=== PATIENT | female | born 1955 | race Caucasian/White ===

== ENCOUNTER 2020-11-10 13:36 | Inpatient (IN) ==
[2020-11-10 15:17] LABS: INR 1.4 (0.9-1.1); Prothrombin Time 17.9 sec (11.9-14.5)
[2020-11-10 15:25] LABS: Basophils # (Auto) 0.02 K/mcL (0.00-0.30); Basophils % (Auto) 0.2 % (0.0-2.0); Eosinophils # (Auto) 0.02 K/mcL (0.00-0.70); Eosinophils % (Auto) 0.2 % (0.0-7.0); Hematocrit 36.6 % (34.1-44.9); Hemoglobin 10.1 g/dL (11.2-15.7); Lymphocytes # (Auto) 1.69 K/mcL (1.50-4.80); Lymphocytes % (Auto) 16.6 % (15.5-49.0); Mean Cell Volume 85.5 fL (80.0-100.0); Mean Corpuscular HGB Conc 27.6 g/dL (31.0-36.0); Monocytes # (Auto) 0.75 K/mcL (0.10-0.90); Monocytes % (Auto) 7.4 % (1.0-12.0); Neutrophils % (Auto) 75.6 % (38.0-78.0); Platelet Count 236 K/mcL (140-440); RBC 4.28 M/mcL (3.59-5.38); Red Cell Distribution Width 18.1 % (11.5-14.5); WBC 10.2 K/mcL (4.5-11.0)
[2020-11-10 15:43] LABS: ALT/SGPT 6 U/L (<40); AST/SGOT 12 U/L (<32); Albumin 3.3 gm/dL (3.2-5.2); Albumin/Globulin Ratio 0.9 (1.0-2.3); Alkaline Phosphatase 119 U/L (39-117); Bilirubin,Total 0.3 mg/dL (0.1-1.0); Blood Urea Nitrogen 19 mg/dL (8-23); Calcium 8.9 mg/dL (8.6-10.4); Carbon Dioxide 42 mmol/L (22-30); Chloride 93 mmol/L (96-108); Globulin 3.6 gm/dL (2.2-3.7); Glomerular Filtration Rate 48; Glucose 98 mg/dL (70-105)
--- NOTE | 2020-11-10 16:09 | Emergency Department Note ---
SOB HPI General Chief Complaint: Shortness of Breath/Dyspnea Stated Complaint: SOB/chest pain Time Seen by Provider: 11/10/20 15:54 Source: patient and EMS Mode of arrival: EMS Limitations: no limitations History of Present Illness HPI Narrative: Patient is a 65-year-old lady who arrives emergency department by ambulance complaining of shortness of breath. History is provided by the patient and paramedics and is limited due to the patient's current medical condition. The patient has been getting short of breath today. Staff at her alf noticed that she appeared more short of breath than usual so he called 911 and she was transferred to the emergency department. Paramedics found her to have an oxygen saturation in the 80s on her usual 2 L home oxygen. This did not improve with increasing oxygen administration. She denies any fever or chills. She is unable to provide a consistent answer as to whether or not she is having associated chest pain. Related Data Home Medications Medication Instructions Recorded Confirmed acetaminophen 650 mg PO Q6H PRN 11/11/20 11/11/20 albuterol sulfate [Proventil HFA] 1 puff INHALATION QID 11/11/20 11/11/20 atorvastatin 40 mg PO QHS 11/11/20 11/11/20 bisacodyl [Dulcolax (bisacodyl)] 10 mg RI QDAY PRN 11/11/20 11/11/20 calcium carbonate 500 mg PO TID PRN 11/11/20 11/11/20 calcium citrate 500 mg PO BID 11/11/20 11/11/20 cholecalciferol (vitamin D3) 25 mcg PO QDAY 11/11/20 11/11/20 docusate sodium 100 mg PO BID 11/11/20 11/11/20 ergocalciferol (vitamin D2) 1,250 mcg PO WE 11/11/20 11/11/20 fluticasone propion-salmeterol 1 inh INHALATION BID 11/11/20 11/11/20 hydroxyzine HCl 50 mg PO DAILY PRN 11/11/20 11/11/20 lidocaine [Lidocaine Pain Relief] 1 patch TOPICAL QDAY PRN 11/11/20 11/11/20 loperamide 2 mg PO Q4H PRN 11/11/20 11/11/20 magnesium 200 mg PO QDAY 11/11/20 11/11/20 magnesium hydroxide [Milk of 400 mg PO QDAY PRN 11/11/20 11/11/20 Magnesia] magnesium oxide 400 mg PO QDAY 11/11/20 11/11/20 melatonin 10 mg PO HS 11/11/20 11/11/20 metformin [Glucophage XR] 500 mg PO QDAY 11/11/20 11/11/20 metoprolol tartrate 50 mg PO BID 11/11/20 11/11/20 multivitamin [Multiple Vitamins] 1 tab PO QAM 11/11/20 11/11/20 naproxen sodium [Aleve] 220 mg PO Q12H PRN 11/11/20 11/11/20 oxycodone 10 mg PO Q4H PRN 11/11/20 11/11/20 paroxetine HCl 10 mg PO QDAY 11/11/20 11/11/20 paroxetine HCl 20 mg PO HS 11/11/20 11/11/20 polyethylene glycol 3350 17 g PO DAILY 11/11/20 11/11/20 potassium chloride 10 meq PO QDAY 11/11/20 11/11/20 pregabalin [Lyrica] 25 mg PO TID 11/11/20 11/11/20 rivaroxaban 20 mg PO 1500 11/11/20 11/11/20 sodium phosphates [Fleet Enema] 118 ml RI ONCE PRN 11/11/20 11/11/20 torsemide [Demadex] 20 mg PO 0700,1500 11/11/20 11/11/20 trazodone 200 mg PO QHS 11/11/20 11/11/20 Allergies Allergy/AdvReac Type Severity Reaction Status Date / Time morphine Allergy Unknown Unknown Verified 11/10/20 13:58 Penicillins Allergy Unknown Unknown Verified 11/10/20 13:58 Review of Systems ROS ROS Narrative: Narrative: Limitations: ROS unobtainable due to patients medical condition [facility] Narrative Patient History Narrative: Narrative: Medical/Surgical/Family History All Active Problems (Updated 11/10/20 @ 19:15 by Abilio Mcdonald MD) Delirium (Acute) On home oxygen therapy (Acute) Acute exacerbation of CHF (congestive heart failure) (Acute) CHF (congestive heart failure) (Acute) No pertinent past surgical history (Chronic) GERD without esophagitis (Chronic) Paroxysmal atrial fibrillation (Chronic) Essential hypertension (Chronic) Major depressive disorder, recurrent, unspecified (Chronic) Mixed hyperlipidemia (Chronic) Pain in left shoulder (Chronic) Chronic combined systolic and diastolic congestive heart failure (Chronic) Right sided sciatica (Chronic) Somatization disorder (Chronic) Insomnia, unspecified (Chronic) Chronic pulmonary embolism (Chronic) Morbid obesity with alveolar hypoventilation (Chronic) Type 2 diabetes mellitus with hyperglycemia (Chronic) Acute and chronic respiratory failure with hypercapnia (Chronic) Acute and chronic respiratory failure with hypoxia (Chronic) COPD (chronic obstructive pulmonary disease) (Chronic) Acute exacerbation of chronic obstructive pulmonary disease (COPD) (Chronic) Hypoventilation (Chronic) Medical History Acute and chronic respiratory failure with hypercapnia Acute and chronic respiratory failure with hypoxia Acute exacerbation of chronic obstructive pulmonary disease (COPD) Chronic combined systolic and diastolic congestive heart failure Chronic pulmonary embolism COPD (chronic obstructive pulmonary disease) Essential hypertension GERD without esophagitis Hypoventilation Insomnia, unspecified Major depressive disorder, recurrent, unspecified Mixed hyperlipidemia Morbid obesity with alveolar hypoventilation Pain in left shoulder Paroxysmal atrial fibrillation Right sided sciatica Somatization disorder Type 2 diabetes mellitus with hyperglycemia Surgical History No pertinent past surgical history Family History Other No pertinent family history Social History Smoking Status: Never smoker Alcohol Intake Frequency: does not drink Exam Narrative Narrative: I reviewed the vital signs. Gen -patient is drowsy but arousable to verbal stimuli and [in no acute distress]. [The patient is well groomed.] HEENT -[Head is atraumatic.] [There is no conjunctival pallor or scleral icterus.][Mucous membranes are moist.] CV -S1-S2 [regular rate and rhythm]. Peripheral pulses are [palpable]. [There is no JVD.] Resp -breathing is slightly labored with tachypnea and intermittent pursed lip breathing. The patient is able to speak in short sentences but has visibly increased work of breathing after prolonged conversation. Lungs have diminished air entry bilaterally.[ There is no cyanosis.] GI - Abdomen is [soft] and [nontender to palpation]. There is [no guarding or rebound tenderness]. Derm - [Skin is warm and dry.] [There is no visible rash.] MSK -[Present extremities are atraumatic.] Psych -patient has a flat affect. [The patient does not appear internally stimulated.] Neuro -patient provides simple and somewhat inconsistent answers to questions but is technically oriented to person place time and situation. She has difficulty comprehending more complex directions limiting the neurologic exam. Muscle strength is 5 out of 5 in all 4 extremities. There is no facial asymmetry. Extraocular motion is intact. Visual sheridan are intact to co nfrontation. There is no dysarthria or aphasia. General Limitations: no limitations Course Vital Signs Vital signs: Vital Signs Pulse Rate 69 11/10/20 13:50 Respiratory Rate 17 11/10/20 13:50 Blood Pressure 126/68 11/10/20 13:50 Pulse Oximetry (%) 97 11/10/20 13:50 Temperature 98.7 F 11/11/20 02:48 Pulse Rate 82 11/11/20 02:48 Respiratory Rate 22 11/11/20 02:48 Blood Pressure 116/61 11/11/20 02:48 Pulse Oximetry (%) 90 11/11/20 02:48 MDM MDM Narrative Medical decision making narrative: Patient presents with shortness of breath. Chest x-ray reveals pulmonary edema. BNP is elevated. She does appear slightly confused and has significant hypercapnia but is completely compensated and not acidotic. I discussed the test results with patient and the need for admission she is agreeable. Dr. oJsé assumed care at the change of shift and will admit the patient Lab Data Lab results reviewed: Yes I reviewed the patient's lab results. Result diagrams: 11/10/20 13:50 11/10/20 13:50 Labs: Lab Results 11/10/20 11/10/20 11/10/20 Range/Units 13:50 13:50 13:50 WBC 10.2 (4.5-11.0) K/mcL RBC 4.28 (3.59-5.38) M/mcL Hgb 10.1 L (11.2-15.7) g/dL Hct 36.6 (34.1-44.9) % MCV 85.5 (80.0-100.0) fL MCH 23.6 L (26.0-34.0) pg MCHC 27.6 L (31.0-36.0) g/dL RDW 18.1 H (11.5-14.5) % Plt Count 236 (140-440) K/mcL MPV 10.0 (7.4-10.4) fL Neut % (Auto) 75.6 (38.0-78.0) % Lymph % (Auto) 16.6 (15.5-49.0) % [place] % (Auto) 7.4 (1.0-12.0) % Eos % (Auto) 0.2 (0.0-7.0) % Baso % (Auto) 0.2 (0.0-2.0) % Lymph # (Auto) 1.69 (1.50-4.80) K/mcL [place] # (Auto) 0.75 (0.10-0.90) K/mcL Eos # (Auto) 0.02 (0.00-0.70) K/mcL Baso # (Auto) 0.02 (0.00-0.30) K/mcL Absolute Neutrophils 7.69 (1.80-8.00) K/mcL PT (11.9-14.5) sec INR (0.9-1.1) Sodium 141 (133-145) mmol/L Potassium 4.3 (3.3-5.1) mmol/L Chloride 93 L (96-108) mmol/L Carbon Dioxide 42 H* (22-30) mmol/L Anion Gap 6.0 L (8.0-16.0) BUN 19 (8-23) mg/dL Creatinine 1.2 H (0.6-1.1) mg/dL GFR Calculation 48 Glucose 98 (70-105) mg/dL Hemoglobin A1c (4.0-6.0) % Hgb Estim Average Glucose mg/dL Calcium 8.9 (8.6-10.4) mg/dL Total Bilirubin 0.3 (0.1-1.0) mg/dL AST 12 (<32) U/L ALT 6 (<40) U/L Alkaline Phosphatase 119 H (39-117) U/L Ammonia (11-51) umol/L Troponin T < 0.01 (<0.03) ng/mL NT-Pro-B Natriuret Pep 1585.0 H (<125.0) pg/mL Total Protein 6.9 (5.9-8.4) gm/dL Albumin 3.3 (3.2-5.2) gm/dL Globulin 3.6 (2.2-3.7) gm/dL Albumin/Globulin Ratio 0.9 L (1.0-2.3) Urine Color Urine Appearance (Clear) Urine pH (5.0-9.0) Ur Specific [place] (1.000-1.035) Urine Protein (Negative) mg/dL Urine Glucose (UA) (Negative) mg/dL Urine Ketones (Negative) mg/dL Urine Occult Blood (Negative) mg/dL Urine Nitrate (Negative) Urine Bilirubin (Negative) mg/dL Urine Urobilinogen mg/dL Ur Leukocyte Esterase (Negative) /ug Urine RBC (0-3) /hpf Urine WBC (0-4) /hpf Ur Squamous Epith Cells (0-4) /hpf Urine Bacteria (0) /hpf Hyaline Casts (0-2) /lph Urine Mucus (None) /hpf Ur Culture Indicated? 11/10/20 11/10/20 11/10/20 Range/Units 13:50 14:00 17:20 WBC (4.5-11.0) K/mcL RBC (3.59-5.38) M/mcL Hgb (11.2-15.7) g/dL Hct (34.1-44.9) % MCV (80.0-100.0) fL MCH (26.0-34.0) pg MCHC (31.0-36.0) g/dL RDW (11.5-14.5) % Plt Count (140-440) K/mcL MPV (7.4-10.4) fL Neut % (Auto) (38.0-78.0) % Lymph % (Auto) (15.5-49.0) % [place] % (Auto) (1.0-12.0) % Eos % (Auto) (0.0-7.0) % Baso % (Auto) (0.0-2.0) % Lymph # (Auto) (1.50-4.80) K/mcL [place] # (Auto) (0.10-0.90) K/mcL Eos # (Auto) (0.00-0.70) K/mcL Baso # (Auto) (0.00-0.30) K/mcL Absolute Neutrophils (1.80-8.00) K/mcL PT 17.9 H (11.9-14.5) sec INR 1.4 H (0.9-1.1) Sodium (133-145) mmol/L Potassium (3.3-5.1) mmol/L Chloride (96-108) mmol/L Carbon Dioxide (22-30) mmol/L Anion Gap (8.0-16.0) BUN (8-23) mg/dL Creatinine (0.6-1.1) mg/dL GFR Calculation Glucose (70-105) mg/dL Hemoglobin A1c 6.2 H (4.0-6.0) % Hgb Estim Average Glucose 131 mg/dL Calcium (8.6-10.4) mg/dL Total Bilirubin (0.1-1.0) mg/dL AST (<32) U/L ALT (<40) U/L Alkaline Phosphatase (39-117) U/L Ammonia 16 (11-51) umol/L Troponin T (<0.03) ng/mL NT-Pro-B Natriuret Pep (<125.0) pg/mL Total Protein (5.9-8.4) gm/dL Albumin (3.2-5.2) gm/dL Globulin (2.2-3.7) gm/dL Albumin/Globulin Ratio (1.0-2.3) Urine Color Urine Appearance (Clear) Urine pH (5.0-9.0) Ur Specific [place] (1.000-1.035) Urine Protein (Negative) mg/dL Urine Glucose (UA) (Negative) mg/dL Urine Ketones (Negative) mg/dL Urine Occult Blood (Negative) mg/dL Urine Nitrate (Negative) Urine Bilirubin (Negative) mg/dL Urine Urobilinogen mg/dL Ur Leukocyte Esterase (Negative) /ug Urine RBC (0-3) /hpf Urine WBC (0-4) /hpf Ur Squamous Epith Cells (0-4) /hpf Urine Bacteria (0) /hpf Hyaline Casts (0-2) /lph Urine Mucus (None) /hpf Ur Culture Indicated? 11/10/20 Range/Units 17:50 WBC (4.5-11.0) K/mcL RBC (3.59-5.38) M/mcL Hgb (11.2-15.7) g/dL Hct (34.1-44.9) % MCV (80.0-100.0) fL MCH (26.0-34.0) pg MCHC (31.0-36.0) g/dL RDW (11.5-14.5) % Plt Count (140-440) K/mcL MPV (7.4-10.4) fL Neut % (Auto) (38.0-78.0) % Lymph % (Auto) (15.5-49.0) % [place] % (Auto) (1.0-12.0) % Eos % (Auto) (0.0-7.0) % Baso % (Auto) (0.0-2.0) % Lymph # (Auto) (1.50-4.80) K/mcL [place] # (Auto) (0.10-0.90) K/mcL Eos # (Auto) (0.00-0.70) K/mcL Baso # (Auto) (0.00-0.30) K/mcL Absolute Neutrophils (1.80-8.00) K/mcL PT (11.9-14.5) sec INR (0.9-1.1) Sodium (133-145) mmol/L Potassium (3.3-5.1) mmol/L Chloride (96-108) mmol/L Carbon Dioxide (22-30) mmol/L Anion Gap (8.0-16.0) BUN (8-23) mg/dL Creatinine (0.6-1.1) mg/dL GFR Calculation Glucose (70-105) mg/dL Hemoglobin A1c (4.0-6.0) % Hgb Estim Average Glucose mg/dL Calcium (8.6-10.4) mg/dL Total Bilirubin (0.1-1.0) mg/dL AST (<32) U/L ALT (<40) U/L Alkaline Phosphatase (39-117) U/L Ammonia (11-51) umol/L Troponin T (<0.03) ng/mL NT-Pro-B Natriuret Pep (<125.0) pg/mL Total Protein (5.9-8.4) gm/dL Albumin (3.2-5.2) gm/dL Globulin (2.2-3.7) gm/dL Albumin/Globulin Ratio (1.0-2.3) Urine Color Yellow Urine Appearance Clear (Clear) Urine pH 5.0 (5.0-9.0) Ur Specific [place] 1.010 (1.000-1.035) Urine Protein Negative (Negative) mg/dL Urine Glucose (UA) Negative (Negative) mg/dL Urine Ketones Negative (Negative) mg/dL Urine Occult Blood Negative (Negative) mg/dL Urine Nitrate Negative (Negative) Urine Bilirubin Negative (Negative) mg/dL Urine Urobilinogen Negative mg/dL Ur Leukocyte Esterase Negative (Negative) /ug Urine RBC < 1 (0-3) /hpf Urine WBC 1 (0-4) /hpf Ur Squamous Epith Cells 1 (0-4) /hpf Urine Bacteria None (0) /hpf Hyaline Casts 20 H (0-2) /lph Urine Mucus Few A (None) /hpf Ur Culture Indicated? No ED POC Tests ED POC Tests: KYLEIGH - SARS Antigen Negative Radiology Data Radiology results narrative: Portable chest x-ray was obtained at 2:38 PM. I interpreted the film prior to availability of the radiology read. Study somewhat limited by patient body habitus. There is cardiomegaly and pulmonary vascular congestion concerning for congestive heart failure. EKG Data EKG #1: EKG attestation: Yes I reviewed and interpreted this EKG. EKG results narrative: EKG performed at 1:56 PM: Sinus rhythm, rate 67. Normal P wave, QRS and T wave morphology. Grossly normal axis. Normal RI, QRS, and QTc duration. No ST segment deviation. No old EKG immediately available for comparison. EKG was interpreted by me. Discharge Plan Patient/Caregiver Discharge Instructions Pt seen by MARINE RIGGER/PA only: No Clinical Impression: CHF (congestive heart failure) Patient Disposition: Xfer As Inpt ([facility]) Discharge Date/Time: 11/10/20 20:26
[2020-11-10] MEDS ORDERED: FUROSEMIDE 40 MG/4 ML VIAL IV ONE (17:10)
[2020-11-10] MEDS ORDERED: NITROGLYCERIN 1 GM OINT.TOP TD ONE (17:10)
--- NOTE | 2020-11-10 18:21 | XRay Report ---
CLINICAL INFORMATION: chest pain COMPARISON: 05/13/2018 FINDINGS: The heart is moderately enlarged. Mediastinum is unremarkable. Pulmonary vessels are mildly distended and there is moderate peribronchovascular edema in both lungs. Minor right basilar atelectasis noted. No effusion IMPRESSION: Moderate CHF Interpreted and Authenticated by: Win Lam 11/10/20
--- NOTE | 2020-11-10 18:22 | Cat Scan Report ---
CLINICAL INFORMATION: Confusion COMPARISON: None. TECHNIQUE: 2.5 mm helical slices were obtained in the skull base to vertex. Following reconstruction, axial reformatted images were reviewed at bone and parenchymal windows. The exam was performed using radiation dose optimization techniques including, but not limited to, automated exposure control, adjustment of the mA and/or kV according to patient size and use of iterative reconstruction technique. FINDINGS: The ventricles, sulci, fissures, and cisterns are normal in size and configuration. No extra-axial fluid collections are identified. The cerebrum, brainstem and cerebellum are unremarkable. There is no evidence of hemorrhage, mass effect, or edema. Bone windows show no osseous abnormality. IMPRESSION: Normal head CT without contrast. Interpreted and Authenticated by: Win Lam 11/10/20
[2020-11-10 18:37] LABS: Appearance,Urine CLEAR (Clear); Bilirubin,Urine Negative (Negative); Color,Urine YELLOW; Culture Indicated,Urine No; Glucose,Urine (UA) Negative (Negative); Ketones,Urine Negative (Negative); Leukocyte Esterase,Urine Negative /ug (Negative); Mucus,Urine FEW /hpf; Nitrate,Urine Negative (Negative); Protein,Urine Negative (Negative); Urine Blood Negative (Negative); Urine Hyaline Cast 20 /lph (0-2); Urine RBC < 1 /hpf (0-3); Urine Squamous Epithelial Cell 1 /hpf (0-4); Urine WBC 1 /hpf (0-4); Urobilinogen,Urine Negative
[2020-11-10] MEDS ORDERED: ONDANSETRON 4 MG/2 ML VIAL IV PRN ×3 (18:47→20:55)
--- NOTE | 2020-11-10 18:50 | Emergency Department Note ---
HPI General Chief complaint: Shortness of Breath/Dyspnea Stated complaint: SOB/chest pain Time Seen by Provider: 11/10/20 15:54 Source: patient and EMS Mode of arrival: EMS Limitations: no limitations History of Present Illness HPI Narrative: Narrative: Related Data Home Medications Medication Instructions Recorded Confirmed Unobtainable 08/14/20 08/14/20 Allergies Allergy/AdvReac Type Severity Reaction Status Date / Time morphine Allergy Unknown Unknown Verified 11/10/20 13:58 Penicillins Allergy Unknown Unknown Verified 11/10/20 13:58 Review of Systems ROS ROS Narrative: Narrative: PFSH Narrative Patient History Narrative: Narrative: Medical/Surgical/Family History All Active Problems (Updated 11/10/20 @ 18:50 by Efrain José DO) CHF (congestive heart failure) (Acute) No pertinent past surgical history (Chronic) GERD without esophagitis (Chronic) Paroxysmal atrial fibrillation (Chronic) Essential hypertension (Chronic) Major depressive disorder, recurrent, unspecified (Chronic) Mixed hyperlipidemia (Chronic) Pain in left shoulder (Chronic) Chronic combined systolic and diastolic congestive heart failure (Chronic) Right sided sciatica (Chronic) Somatization disorder (Chronic) Insomnia, unspecified (Chronic) Chronic pulmonary embolism (Chronic) Morbid obesity with alveolar hypoventilation (Chronic) Type 2 diabetes mellitus with hyperglycemia (Chronic) Acute and chronic respiratory failure with hypercapnia (Chronic) Acute and chronic respiratory failure with hypoxia (Chronic) COPD (chronic obstructive pulmonary disease) (Chronic) Acute exacerbation of chronic obstructive pulmonary disease (COPD) (Chronic) Hypoventilation (Chronic) Medical History Acute and chronic respiratory failure with hypercapnia Acute and chronic respiratory failure with hypoxia Acute exacerbation of chronic obstructive pulmonary disease (COPD) Chronic combined systolic and diastolic congestive heart failure Chronic pulmonary embolism COPD (chronic obstructive pulmonary disease) Essential hypertension GERD without esophagitis Hypoventilation Insomnia, unspecified Major depressive disorder, recurrent, unspecified Mixed hyperlipidemia Morbid obesity with alveolar hypoventilation Pain in left shoulder Paroxysmal atrial fibrillation Right sided sciatica Somatization disorder Type 2 diabetes mellitus with hyperglycemia Surgical History No pertinent past surgical history Family History Other No pertinent family history Social History Smoking Status: Never smoker Alcohol Intake Frequency: does not drink Exam Narrative Narrative: Narrative: General Limitations: no limitations Course Vital Signs Vital signs: Vital Signs Pulse Rate 69 11/10/20 13:50 Respiratory Rate 17 11/10/20 13:50 Blood Pressure 126/68 11/10/20 13:50 Pulse Oximetry (%) 97 11/10/20 13:50 Pulse Rate 75 11/10/20 18:34 Respiratory Rate 17 11/10/20 13:50 Blood Pressure 104/81 11/10/20 18:34 Pulse Oximetry (%) 95 11/10/20 18:34 MDM MDM Narrative Medical decision making narrative: Narrative: Patient was signed out to me by Dr. Wilkes, and I agree with work-up and plan thus far. Is understanding the patient came in with complaints of shortness of breath. Getting slowly worse over the last several days, though patient has some baseline confusion and so it was difficult to fully ascertain the exact time of symptoms. Work-up thus far showed stable vital signs, and at signout call was pending to the hospitalist for admission. She had elevated BNP, as well as chest x-ray consistent with CHF exacerbation. Troponin was negative and EKG showed no acute ischemic findings. Patient was given Lasix and nitro, and has not required significant oxygenation supplementation. Discussed the case with the hospitalist, who agrees to the plan of admission at this time. Lab Data Result diagrams: 11/10/20 13:50 11/10/20 13:50 Labs: Lab Results 11/10/20 11/10/20 11/10/20 Range/Units 13:50 13:50 13:50 WBC 10.2 (4.5-11.0) K/mcL RBC 4.28 (3.59-5.38) M/mcL Hgb 10.1 L (11.2-15.7) g/dL Hct 36.6 (34.1-44.9) % MCV 85.5 (80.0-100.0) fL MCH 23.6 L (26.0-34.0) pg MCHC 27.6 L (31.0-36.0) g/dL RDW 18.1 H (11.5-14.5) % Plt Count 236 (140-440) K/mcL MPV 10.0 (7.4-10.4) fL Neut % (Auto) 75.6 (38.0-78.0) % Lymph % (Auto) 16.6 (15.5-49.0) % [place] % (Auto) 7.4 (1.0-12.0) % Eos % (Auto) 0.2 (0.0-7.0) % Baso % (Auto) 0.2 (0.0-2.0) % Lymph # (Auto) 1.69 (1.50-4.80) K/mcL [place] # (Auto) 0.75 (0.10-0.90) K/mcL Eos # (Auto) 0.02 (0.00-0.70) K/mcL Baso # (Auto) 0.02 (0.00-0.30) K/mcL Absolute Neutrophils 7.69 (1.80-8.00) K/mcL PT (11.9-14.5) sec INR (0.9-1.1) Sodium 141 (133-145) mmol/L Potassium 4.3 (3.3-5.1) mmol/L Chloride 93 L (96-108) mmol/L Carbon Dioxide 42 H* (22-30) mmol/L Anion Gap 6.0 L (8.0-16.0) BUN 19 (8-23) mg/dL Creatinine 1.2 H (0.6-1.1) mg/dL GFR Calculation 48 Glucose 98 (70-105) mg/dL Calcium 8.9 (8.6-10.4) mg/dL Total Bilirubin 0.3 (0.1-1.0) mg/dL AST 12 (<32) U/L ALT 6 (<40) U/L Alkaline Phosphatase 119 H (39-117) U/L Ammonia (11-51) umol/L Troponin T < 0.01 (<0.03) ng/mL NT-Pro-B Natriuret Pep 1585.0 H (<125.0) pg/mL Total Protein 6.9 (5.9-8.4) gm/dL Albumin 3.3 (3.2-5.2) gm/dL Globulin 3.6 (2.2-3.7) gm/dL Albumin/Globulin Ratio 0.9 L (1.0-2.3) Urine Color Urine Appearance (Clear) Urine pH (5.0-9.0) Ur Specific [place] (1.000-1.035) Urine Protein (Negative) mg/dL Urine Glucose (UA) (Negative) mg/dL Urine Ketones (Negative) mg/dL Urine Occult Blood (Negative) mg/dL Urine Nitrate (Negative) Urine Bilirubin (Negative) mg/dL Urine Urobilinogen mg/dL Ur Leukocyte Esterase (Negative) /ug Urine RBC (0-3) /hpf Urine WBC (0-4) /hpf Ur Squamous Epith Cells (0-4) /hpf Urine Bacteria (0) /hpf Hyaline Casts (0-2) /lph Urine Mucus (None) /hpf Ur Culture Indicated? 11/10/20 11/10/20 11/10/20 Range/Units 13:50 17:20 17:50 WBC (4.5-11.0) K/mcL RBC (3.59-5.38) M/mcL Hgb (11.2-15.7) g/dL Hct (34.1-44.9) % MCV (80.0-100.0) fL MCH (26.0-34.0) pg MCHC (31.0-36.0) g/dL RDW (11.5-14.5) % Plt Count (140-440) K/mcL MPV (7.4-10.4) fL Neut % (Auto) (38.0-78.0) % Lymph % (Auto) (15.5-49.0) % [place] % (Auto) (1.0-12.0) % Eos % (Auto) (0.0-7.0) % Baso % (Auto) (0.0-2.0) % Lymph # (Auto) (1.50-4.80) K/mcL [place] # (Auto) (0.10-0.90) K/mcL Eos # (Auto) (0.00-0.70) K/mcL Baso # (Auto) (0.00-0.30) K/mcL Absolute Neutrophils (1.80-8.00) K/mcL PT 17.9 H (11.9-14.5) sec INR 1.4 H (0.9-1.1) Sodium (133-145) mmol/L Potassium (3.3-5.1) mmol/L Chloride (96-108) mmol/L Carbon Dioxide (22-30) mmol/L Anion Gap (8.0-16.0) BUN (8-23) mg/dL Creatinine (0.6-1.1) mg/dL GFR Calculation Glucose (70-105) mg/dL Calcium (8.6-10.4) mg/dL Total Bilirubin (0.1-1.0) mg/dL AST (<32) U/L ALT (<40) U/L Alkaline Phosphatase (39-117) U/L Ammonia 16 (11-51) umol/L Troponin T (<0.03) ng/mL NT-Pro-B Natriuret Pep (<125.0) pg/mL Total Protein (5.9-8.4) gm/dL Albumin (3.2-5.2) gm/dL Globulin (2.2-3.7) gm/dL Albumin/Globulin Ratio (1.0-2.3) Urine Color Yellow Urine Appearance Clear (Clear) Urine pH 5.0 (5.0-9.0) Ur Specific [place] 1.010 (1.000-1.035) Urine Protein Negative (Negative) mg/dL Urine Glucose (UA) Negative (Negative) mg/dL Urine Ketones Negative (Negative) mg/dL Urine Occult Blood Negative (Negative) mg/dL Urine Nitrate Negative (Negative) Urine Bilirubin Negative (Negative) mg/dL Urine Urobilinogen Negative mg/dL Ur Leukocyte Esterase Negative (Negative) /ug Urine RBC < 1 (0-3) /hpf Urine WBC 1 (0-4) /hpf Ur Squamous Epith Cells 1 (0-4) /hpf Urine Bacteria None (0) /hpf Hyaline Casts 20 H (0-2) /lph Urine Mucus Few A (None) /hpf Ur Culture Indicated? No ED POC Tests ED POC Tests: KYLEIGH - SARS Antigen Negative Discharge Plan Patient/Caregiver Discharge Instructions Pt seen by ELECTRONIC PREPRESS OPERATOR/PA only: No Clinical Impression: CHF (congestive heart failure) Patient Disposition: Xfer As Inpt ([facility]) Prescriptions: No Action Unobtainable RF: 0
[2020-11-10] MEDS ORDERED: DEXTROSE 31 GM ORAL.SUSP PO PRN ×2 (19:01→20:55)
[2020-11-10] MEDS ORDERED: DEXTROSE 50% 50 ML VIAL IV PRN ×2 (19:01→20:55)
--- NOTE | 2020-11-10 19:05 | Internal Med History&Physical ---
HPI History of Present Illness Patient information: Note initiated : 11/10/20 at 7:04 pm Service Date, if different from initiated Date: [] Patient: Alissa Dowling a 65 y/o F admitted on for SOB/chest pain. Chief Complaint: [altered mental status, CHF exacerbation] History of present illness: Ms. Dowling is a 65 year old F alf resident, history of CHF, COPD, type 2 diabetes, essential hypertension's, mixed dyslipidemia, GERD, morbid obesity, presenting with 1 day history of altered mental status and worsening shortness of breath. History is limited by patient's clinical situations as well as inability of nursing staff or family. She was sent by EMS from alf to our ED for 1 day history of acute onset altered mental status as well as acute exacerbation of shortness of breath. Patient is complaining of confusions. Patient is complaining of shortness of breath. Patient is complaining of nonproductive cough. Patient is complaining of wheezing. Patient is complaining of fever and chills. Patient denies any chest pain. Patient denies any diaphoresis. Patient's oxygen saturations in the 80s upon arrival to the ED with 2 L of oxygen baseline. Labs significant for BNP level elevated to 1500 with unknown baseline. Chest x-ray significant for signs of pulmonary edema secondary to CHF. Constitutional Constitutional: Absent chills, excessive sweating, fatigue, fever(s) and weakness EENT Eyes: Absent blurry vision, change in vision, loss of vision and other visual disturbances Ears: Absent decreased hearing and tinnitus Nose, mouth and throat: Absent abnormal hearing, dry mouth, headache(s), nasal congestion and sore throat Cardiovascular Cardiovascular: Absent chest pain, chest pain at rest, edema, irregular heart rhythm and palpatations Respiratory Respiratory: Present cough, dyspnea and wheezing; Absent excessive phlegm production Gastrointestinal Gastrointestinal: Absent abdominal pain, constipation, diarrhea, nausea and vomiting Musculoskeletal Musculoskeletal: Absent back pain, deformity, limited range of motion, muscle c ramps, muscle weakness and numbness Integumentary Integumentary: Absent lesions, rash and wounds Neurological Neurological: Present confusion; Absent focal weakness, headache(s) and numbness Psychiatric Psychiatric: Absent anxiety, depression and hallucinations PFSH PFSH All Active Problems (Updated 11/10/20 @ 19:15 by Abilio Mcdonald MD) Delirium (Acute) On home oxygen therapy (Acute) Acute exacerbation of CHF (congestive heart failure) (Acute) CHF (congestive heart failure) (Acute) No pertinent past surgical history (Chronic) GERD without esophagitis (Chronic) Paroxysmal atrial fibrillation (Chronic) Essential hypertension (Chronic) Major depressive disorder, recurrent, unspecified (Chronic) Mixed hyperlipidemia (Chronic) Pain in left shoulder (Chronic) Chronic combined systolic and diastolic congestive heart failure (Chronic) Right sided sciatica (Chronic) Somatization disorder (Chronic) Insomnia, unspecified (Chronic) Chronic pulmonary embolism (Chronic) Morbid obesity with alveolar hypoventilation (Chronic) Type 2 diabetes mellitus with hyperglycemia (Chronic) Acute and chronic respiratory failure with hypercapnia (Chronic) Acute and chronic respiratory failure with hypoxia (Chronic) COPD (chronic obstructive pulmonary disease) (Chronic) Acute exacerbation of chronic obstructive pulmonary disease (COPD) (Chronic) Hypoventilation (Chronic) Medical History Acute and chronic respiratory failure with hypercapnia Acute and chronic respiratory failure with hypoxia Acute exacerbation of chronic obstructive pulmonary disease (COPD) Chronic combined systolic and diastolic congestive heart failure Chronic pulmonary embolism COPD (chronic obstructive pulmonary disease) Essential hypertension GERD without esophagitis Hypoventilation Insomnia, unspecified Major depressive disorder, recurrent, unspecified Mixed hyperlipidemia Morbid obesity with alveolar hypoventilation Pain in left shoulder Paroxysmal atrial fibrillation Right sided sciatica Somatization disorder Type 2 diabetes mellitus with hyperglycemia Surgical History No pertinent past surgical history Family History Other No pertinent family history Social History (System 11/10/20 @ 13:58 by Casey Davidson) housing: alf marital status: unknown alcohol intake frequency: does not drink didier/quaker: Syn[employer] MEDS/ALLERGIES Home Medications and Allergies Home Medications Medication Instructions Recorded Confirmed Type Unobtainable 08/14/20 08/14/20 History Allergies Allergy/AdvReac Type Severity Reaction Status Date / Time morphine Allergy Unknown Unknown Verified 11/10/20 13:58 Penicillins Allergy Unknown Unknown Verified 11/10/20 13:58 EXAM Constitutional Vitals: Pulse Resp BP Pulse Ox 65 24 H 89/71 100 11/10/20 18:46 11/10/20 18:46 11/10/20 18:46 11/10/20 18:46 General appearance: cooperative, no acute distress and obese Head Head exam: Present atraumatic and normocephalic Eye Eye exam: Present EOMI and PERRL ENT ENT exam: Present mucous membranes moist, normal exam and normal external ear exam Additional comments: Nasal cannula in place Neck Neck exam: Present normal inspection; Absent lymphadenopathy, tenderness and thyromegaly Respiratory Respiratory exam: Present decreased breath sounds; Absent accessory muscle use, respiratory distress, rhonchi and wheezes Cardiovascular Cardiovascular exam: Present normal rate and rhythm; Absent JVD GI/Abdominal GI/Abdominal exam: Present normal bowel sounds and soft; Absent organomegaly and tenderness Additional comments: Obese abdomen Extremities Exam Extremities exam: Present full ROM, normal capillary refill, normal inspection and pedal edema; Absent tenderness Neurological Exam Neurological exam: Present alert, CN II-XII intact and oriented X3; Absent motor sensory deficit Psychiatric Psychiatric exam: Present normal affect and normal mood; Absent anxious and depressed Skin Skin exam: Present dry and intact DATA Data Completed and Pending Labs: Labs from last 24 hours 11/10/20 11/10/20 11/10/20 17:50 17:20 13:50 WBC RBC Hgb Hct MCV MCH MCHC RDW Plt Count MPV Neut % (Auto) Lymph % (Auto) Keith % (Auto) Eos % (Auto) Baso % (Auto) Lymph # (Auto) Keith # (Auto) Eos # (Auto) Baso # (Auto) Absolute Neutrophils PT 17.9 H INR 1.4 H Sodium Potassium Chloride Carbon Dioxide Anion Gap BUN Creatinine GFR Calculation Glucose Calcium Total Bilirubin AST ALT Alkaline Phosphatase Ammonia 16 Troponin T NT-Pro-B Natriuret Pep Total Protein Albumin Globulin Albumin/Globulin Ratio Urine Color Yellow Urine Appearance Clear Urine pH 5.0 Ur Specific [place] 1.010 Urine Protein Negative Urine Glucose (UA) Negative Urine Ketones Negative Urine Occult Blood Negative Urine Nitrate Negative Urine Bilirubin Negative Urine Urobilinogen Negative Ur Leukocyte Esterase Negative Urine RBC < 1 Urine WBC 1 Ur Squamous Epith Cells 1 Urine Bacteria None Hyaline Casts 20 H Urine Mucus Few A Ur Culture Indicated? No 11/10/20 11/10/20 11/10/20 13:50 13:50 13:50 WBC 10.2 RBC 4.28 Hgb 10.1 L Hct 36.6 MCV 85.5 MCH 23.6 L MCHC 27.6 L RDW 18.1 H Plt Count 236 MPV 10.0 Neut % (Auto) 75.6 Lymph % (Auto) 16.6 Keith % (Auto) 7.4 Eos % (Auto) 0.2 Baso % (Auto) 0.2 Lymph # (Auto) 1.69 Keith # (Auto) 0.75 Eos # (Auto) 0.02 Baso # (Auto) 0.02 Absolute Neutrophils 7.69 PT INR Sodium 141 Potassium 4.3 Chloride 93 L Carbon Dioxide 42 H* Anion Gap 6.0 L BUN 19 Creatinine 1.2 H GFR Calculation 48 Glucose 98 Calcium 8.9 Total Bilirubin 0.3 AST 12 ALT 6 Alkaline Phosphatase 119 H Ammonia Troponin T < 0.01 NT-Pro-B Natriuret Pep 1585.0 H Total Protein 6.9 Albumin 3.3 Globulin 3.6 Albumin/Globulin Ratio 0.9 L Urine Color Urine Appearance Urine pH Ur Specific [place] Urine Protein Urine Glucose (UA) Urine Ketones Urine Occult Blood Urine Nitrate Urine Bilirubin Urine Urobilinogen Ur Leukocyte Esterase Urine RBC Urine WBC Ur Squamous Epith Cells Urine Bacteria Hyaline Casts Urine Mucus Ur Culture Indicated? A/P Assessment and plan (1) Type 2 diabetes mellitus with hyperglycemia: Status: Chronic (2) Morbid obesity with alveolar hypoventilation: Status: Chronic (3) Acute and chronic respiratory failure with hypoxia: Status: Chronic (4) COPD (chronic obstructive pulmonary disease): Status: Chronic (5) GERD without esophagitis: Status: Chronic (6) Essential hypertension: Status: Chronic (7) Mixed hyperlipidemia: Status: Chronic (8) Acute exacerbation of CHF (congestive heart failure): Status: Acute (9) On home oxygen therapy: Status: Acute (10) Delirium: Status: Acute Narrative A/P Narrative: Assessment and Plans: 1. CHF exacerbation: Admit to inpatient med surg with telemetry Supplemental oxygen titrate to achieve spo2>=88% (h/o COPD, on home oxygen therapy=2L/min) Intake and output Daily weigh 2L/day fluid restriction 2D echocardiogram look for LVEF and signs of diastolic dysfunction No beta tammy during exacerbation phase, can restart at hospital discharge LIV-I such as Lisinopril Lasix 40mg IV BID Depending on the results of the echocardiogram, consider adding Aldactone 2. COPD, stable: No clinical evidence of exacerbation DuoNEB NEB q4hr PRN wheezing 3. T2DM: HgA1c Hold any oral hypoglycemics Low dose SSI AC HS Accu Chek AC HS Hypoglycemia protocol Diabetic diet 4. Essential HTN: No beta tammy during exacerbation phase, can restart at hospital discharge LIV-I such as Lisinopril Lasix 40mg IV BID Depending on the results of the echocardiogram, consider adding Aldactone 5. Mixed dyslipidemia: Continue statin therapy 6. Delirium: Likely secondary to CHF exacerbation and associated hypoxia/hypoxemia. CT head w/o no acute intracranial findings 7. GERD: Continue oral PPI 8. Morbid obesity: Continue to monitor GI ppx: Continue oral PPI DVT ppx: Lovenox Code status: Full Prognosis: guarded Disposition: inpatient med surg telemetry Time Spent With Patient Time: Total time spent is greater than 50% in coordination of care (as documented) at patient's floor/unit and/or counseling patient: Total time spent with greater than 50% in coordination of care (as documented) at patient's floor/unit and/or counseling patient:: Greater than 35 minutes
[2020-11-10] MEDS ORDERED: ACETAMINOPHEN 325 MG TABLET PO PRN (20:55)
[2020-11-10] MEDS ORDERED: IPRATROPIUM/ALBUTEROL 3 ML AMPUL.NEB NEB PRN (20:55)
[2020-11-10] MEDS ORDERED: traZODone HCL 50 MG TABLET PO PRN (20:55)
[2020-11-10] MEDS ORDERED: INSULIN LISPRO 1 UNIT/0.01 ML UNIT SQ SCH (21:00)
[2020-11-10] MEDS: INSULIN LISPRO 1 UNIT/0.01 ML UNIT SQ SCH (21:27)
[2020-11-10] MEDS: 0.9 % SODIUM CHLORIDE 10 ML SYRINGE IV SCH ×2 (21:29→23:17)
[2020-11-10] MEDS ORDERED: 0.9 % SODIUM CHLORIDE 10 ML SYRINGE IV SCH (22:00)
[2020-11-10 22:35] LABS: Hemoglobin A1C 6.2 % Hgb (4.0-6.0)
[2020-11-10] MEDS: ATORVASTATIN 40 MG TABLET PO SCH (23:16)
[2020-11-10] MEDS: PANTOPRAZOLE 40 MG TABLET PO SCH (23:16)
[2020-11-10] MEDS: SENNOSIDES 1 TABLET PO SCH (23:17)
[2020-11-10] MEDS: DOCUSATE SODIUM 100 MG CAPSULE PO SCH (23:18)
[2020-11-11] MEDS: 0.9 % SODIUM CHLORIDE 10 ML SYRINGE IV SCH ×4 (05:02→21:24)
[2020-11-11] MEDS: DOCUSATE SODIUM 100 MG CAPSULE PO SCH ×2 (07:03→20:53)
[2020-11-11] MEDS ORDERED: ACETAMINOPHEN (PP) 325MG TABLET (#50) PO PRN (07:56)
[2020-11-11] MEDS ORDERED: MAGNESIUM HYDROXIDE 30 ML ORAL.SUSP PO PRN (07:56)
[2020-11-11] MEDS ORDERED: LIDOCAINE 4% TOPICAL PRN (07:56)
[2020-11-11] MEDS ORDERED: oxyCODONE HCL 5 MG TABLET PO PRN (07:56)
[2020-11-11] MEDS ORDERED: FUROSEMIDE 40 MG/4 ML VIAL IV SCH (08:00)
[2020-11-11] MEDS ORDERED: NAPROXEN 250 MG TABLET PO PRN (08:06)
[2020-11-11] MEDS ORDERED: LOPERAMIDE 2 MG CAPSULE PO PRN (08:07)
[2020-11-11] MEDS ORDERED: CALCIUM CARBONATE 500 MG TAB.CHEW CHEWED PRN (08:07)
[2020-11-11] MEDS ORDERED: hydrOXYzine 25 MG TABLET PO PRN (08:08)
[2020-11-11 08:28] LABS: Blood Urea Nitrogen 19 mg/dL (8-23); Calcium 8.8 mg/dL (8.6-10.4); Carbon Dioxide 41 mmol/L (22-30); Chloride 92 mmol/L (96-108); Glomerular Filtration Rate 48; Glucose 84 mg/dL (70-105)
[2020-11-11] MEDS: LISINOPRIL 2.5 MG TABLET PO SCH (08:31)
[2020-11-11] MEDS: ASPIRIN 81 MG TAB.CHEW CHEWED SCH (08:31)
[2020-11-11] MEDS: POTASSIUM CHLORIDE 10 MEQ TABLET PO SCH (08:31)
[2020-11-11] MEDS: PREGABALIN 25 MG CAPSULE PO SCH ×3 (08:32→21:23)
[2020-11-11] MEDS: MAGNESIUM OXIDE 400 MG TABLET PO SCH (08:32)
[2020-11-11] MEDS: MULTIVIT,THER IRON,CA,FA & MIN 1 TABLET PO SCH (08:32)
[2020-11-11] MEDS: NITROGLYCERIN 0.4 MG TAB.SUBL SL PRN ×3 (08:55→09:07)
[2020-11-11] MEDS ORDERED: CALCIUM CITRATE 250 MG PO SCH (09:00)
[2020-11-11] MEDS ORDERED: CALCIUM PO SCH (09:00)
[2020-11-11] MEDS ORDERED: MAGNESIUM OXIDE 400 MG PO SCH (09:00)
[2020-11-11] MEDS ORDERED: MAGNESIUM PO SCH (09:00)
[2020-11-11] MEDS ORDERED: ENOXAPARIN 40 MG/0.4 ML SYRINGE SQ SCH (09:00)
[2020-11-11] MEDS: INSULIN LISPRO 1 UNIT/0.01 ML UNIT SQ SCH ×4 (10:23→21:15)
--- NOTE | 2020-11-11 10:26 | EKG ---
[facility] Test Date: 2020-11-11 Pat Name: Alissa Dowling Department: [facility] Room: 112 Gender: Female Naturopath: : 1955 Requested By: Abilio Mcdonald Order Number: [id number] Reading MD: Celso Orellana Measurements Intervals [place] Rate: 62 P: 57 MA: 168 QRS: 40 QRSD: 102 T: 20 QT: 440 QTc: 447 Interpretive Statements SINUS RHYTHM Electronically Signed On 11-11-2020 10:26:25 PDT by Celso Orellana /store/M0/[id number]
[2020-11-11] MEDS: VITAMIN D3 1,000 UNIT TABLET PO SCH (10:48)
[2020-11-11] MEDS: PARoxetine 20 MG TABLET PO SCH (10:48)
[2020-11-11] MEDS: LIDOCAINE PATCH TOPICAL SCH (10:50)
--- NOTE | 2020-11-11 11:08 | Internal Med Progress Note ---
SUBJECTIVE Subjective Patient information: Note initiated : 11/11/20 at 11:05 am Service Date, if different from initiated Date: [] Patient: Alissa Dowling a 65 y/o F admitted on 11/10/20 for SOB/chest pain. Chief Complaint: [CHF exacerbation] Interval history: History of present illness: Ms. Dowling is a 65 [facility] old F [facility] resident, history of CHF, COPD, type 2 diabetes, essential hypertension's, mixed dyslipidemia, GERD, morbid obesity, presenting with 1 day history of altered mental status and worsening shortness of breath. History is limited by patient's clinical situations as well as inability of nursing staff or family. She was [facility] by EMS from [facility] to [facility] ED for 1 day history of acute onset altered mental status as well as acute exacerbation of shortness of breath. Patient is complaining of confusions. Patient is complaining of shortness of breath. Patient is complaining of nonproductive cough. Patient is complaining of wheezing. Patient is complaining of fever and chills. Patient denies any chest pain. Patient denies any diaphoresis. Patient's oxygen saturations in the 80s upon arrival to the ED with 2 L of oxygen baseline. Labs significant for BNP level elevated to 1500 with unknown baseline. Chest x-ray significant for signs of pulmonary edema secondary to CHF. 11/11: Urine output 600ml over the maintenance technician 2nd shift. Been on 6L/min oxygen over the maintenance technician 2nd shift and this morning. c/o diarrhea, C diff negative. c/o 8/10 sharp constant left sided chest pain, becomes 5/10 s/p NitroSTAT. ECG no acute isch emia. Initial Troponin-i negative. c/o SOB. c/o nonproductive cough without sputum. c/o wheezing. Denies fever or chills. Constitutional Vitals: Vital Signs Temp Pulse Resp BP Pulse Ox 36.8 C 73 22 128/65 89 L 11/11/20 07:50 11/11/20 07:50 11/11/20 07:50 11/11/20 07:50 11/11/20 07:50 Period Temp Pulse Resp BP Sys/Dorado Pulse Ox Last 24 Hr 36.5 C-37.1 C 53-82 14-26 89-141/54-124 82-100 Intake and Output 11/10/20 11/11/20 11/11/20 21:59 05:59 13:59 Intake Total 300 400 Output Total 600 1000 Balance -300 -600 Weight 196.814 kg Intake & Output: Intake & Output 11/10/20 11/11/20 11/11/20 21:59 05:59 13:59 Intake Total 300 400 Output Total 600 1000 Balance -300 -600 Weight 196.814 kg Intake: Oral 300 400 Output: Urine Catheter Amount 600 1000 Other: Meal Breakfast Percent of Meal Consumed 25% Feeding Ability Assist with Tray Set Up Urine Appearance Clear Clear Uretheral (Campbell) Clear Urine Color Pale Bright Yellow Uretheral (Campbell) Pale Stool Size Moderate Moderate Stool Color Brown Yellow Brown Yellow Stool Consistency Soft Watery Liquid Loose # of times incontinent of 1 1 1 Bowels General appearance: cooperative, morbidly obese and no acute distress Head Head exam: Present atraumatic and normocephalic Eye Eye exam: Present EOMI and PERRL ENT ENT exam: Present mucous membranes moist, normal exam and normal external ear exam Additional comments: Nasal cannula in place Neck Neck exam: Present normal inspection; Absent lymphadenopathy, tenderness and thyromegaly Respiratory Respiratory exam: Present decreased breath sounds and wheezes; Absent accessory muscle use and respiratory distress Cardiovascular Cardiovascular exam: Present normal rate and rhythm; Absent JVD GI/Abdominal GI/Abdominal exam: Present normal bowel sounds and soft; Absent organomegaly and tenderness Additional comments: Campbell catheter in place Extremities Exam Extremities exam: Present full ROM, normal capillary refill and normal inspection; Absent tenderness Neurological Exam Neurological exam: Present alert, CN II-XII intact and oriented X3; Absent motor sensory deficit Psychiatric Psychiatric exam: Present normal affect and normal mood; Absent anxious and depressed Skin Skin exam: Present dry and intact OBJ DATA Labs CBC & Chem 7: 11/10/20 13:50 11/11/20 05:51 Labs: Abnormal Lab Results 11/11/20 11/10/20 11/10/20 05:51 17:50 14:00 Hgb MCH MCHC RDW PT INR Chloride 92 L Carbon Dioxide 41 H* Anion Gap Creatinine 1.2 H Hemoglobin A1c 6.2 H Alkaline Phosphatase NT-Pro-B Natriuret Pep Albumin/Globulin Ratio Hyaline Casts 20 H Urine Mucus Few A 11/10/20 11/10/20 11/10/20 13:50 13:50 13:50 Hgb 10.1 L MCH 23.6 L MCHC 27.6 L RDW 18.1 H PT 17.9 H INR 1.4 H Chloride 93 L Carbon Dioxide 42 H* Anion Gap 6.0 L Creatinine 1.2 H Hemoglobin A1c Alkaline Phosphatase 119 H NT-Pro-B Natriuret Pep 1585.0 H Albumin/Globulin Ratio 0.9 L Hyaline Casts Urine Mucus Meds: Medications Acetaminophen (Acetaminophen 325 Mg Tablet) 650 mg PO Q6HP PRN; Protocol PRN Reason: Per Pain Protocol/Fever > 101 Last Admin: 11/10/20 23:16 Dose: 650 mg Documented by: Albuterol Sulfate (Albuterol Sulfate 200 Puff Inhaler) 1 puff INH QID [facility] Albuterol/Ipratropium (Ipratropium/Albuterol 3 Ml Ampul.Neb) 3 ml NEB Q4HP PRN PRN Reason: Shortness Of Breath Aspirin (Aspirin 81 Mg Tab.Chew) 81 mg CHEWED DAILY [facility] Last Admin: 11/11/20 08:31 Dose: 81 mg Documented by: Atorvastatin Calcium (Atorvastatin 40 Mg Tablet) 40 mg PO HS [facility] Last Admin: 11/10/20 23:16 Dose: 40 mg Documented by: Calcium Carbonate/Glycine (Calcium Carbonate 500 Mg Tab.Chew) 500 mg CHEWED TIDP PRN PRN Reason: Dyspepsia Dextrose (Dextrose 50% 50 Ml Vial) 0 ml IV UD PRN PRN Reason: Hypoglycemia Diagnostic Test (Pha) (Accu-Chek 1 Each Strip) 1 each FS ACHS [facility] Last Admin: 11/10/20 21:26 Dose: 1 each Documented by: Docusate Sodium (Docusate Sodium 100 Mg Capsule) 100 mg PO BID [facility] Last Admin: 11/11/20 07:03 Dose: Not Given Documented by: Ergocalciferol (Ergocalciferol (Vitamin D2) 50,000 Unit Capsule) 50,000 unit PO We@0900 [facility] Furosemide (Furosemide 40 Mg/4 Ml Vial) 40 mg IV BIDD [facility] Last Admin: 11/11/20 08:35 Dose: 40 mg Documented by: Glucose (Dextrose 31 Gm Oral.Susp) 15 gm PO PRN PRN PRN Reason: Hypoglycemia Hydroxyzine HCl (Hydroxyzine 25 Mg Tablet) 50 mg PO DAILYP PRN PRN Reason: Anxiety Insulin Human Lispro (Insulin Lispro 1 Unit/0.01 Ml Unit) 0 unit SQ ACHS [facility]; Protocol Last Admin: 11/11/20 10:23 Dose: Not Given Documented by: Iron Carb/Multivit/Elbert/Folic Acid (Multivit,Ther Iron,Ca,Fa & Min 1 Tablet) 1 tab PO DAILY [facility] Last Admin: 11/11/20 08:32 Dose: 1 tab Documented by: Lidocaine (Lidocaine Patch) 1 patch TOPICAL DAILY@1000 [facility] Last Admin: 11/11/20 10:50 Dose: Not Given Documented by: Lisinopril (Lisinopril 2.5 Mg Tablet) 2.5 mg PO DAILY [facility] Last Admin: 11/11/20 08:31 Dose: 2.5 mg Documented by: Loperamide HCl (Loperamide 2 Mg Capsule) 2 mg PO Q4HP PRN PRN Reason: Diarrhea Last Admin: 11/11/20 10:54 Dose: 2 mg Documented by: Magnesium Hydroxide (Magnesium Hydroxide 30 Ml Oral.Susp) 30 ml PO DAILYP PRN PRN Reason: Constipation Magnesium Oxide (Magnesium Oxide 400 Mg Tablet) 400 mg PO DAILY [facility] Last Admin: 11/11/20 08:32 Dose: 400 mg Documented by: Melatonin (Melatonin 3 Mg Tablet) 9 mg PO [facility] Naproxen (Naproxen 250 Mg Tablet) 250 mg PO BIDP PRN PRN Reason: Pain Nitroglycerin (Nitroglycerin 0.4 Mg Tab.Subl) 0.4 mg SL Q5M PRN PRN Reason: Chest Pain Last Admin: 11/11/20 09:07 Dose: 0.4 mg Documented by: Ondansetron HCl (Ondansetron 4 Mg/2 Ml Vial) 4 mg IV Q6HP PRN PRN Reason: Nausea And Vomiting Ondansetron HCl (Ondansetron 4 Mg/2 Ml Vial) 4 mg IV Q6HP PRN PRN Reason: Nausea And Vomiting Oxycodone HCl (Oxycodone Hcl 5 Mg Tablet) 10 mg PO Q4HP PRN; Protocol PRN Reason: Pain Last Admin: 11/11/20 10:48 Dose: 10 mg Documented by: Pantoprazole Sodium (Pantoprazole 40 Mg Tablet) 40 mg PO [facility] Last Admin: 11/10/20 23:16 Dose: 40 mg Documented by: Paroxetine HCl (Paroxetine 20 Mg Tablet) 10 mg PO DAILY [facility] Last Admin: 11/11/20 10:48 Dose: 10 mg Documented by: Paroxetine HCl (Paroxetine 20 Mg Tablet) 20 mg PO [facility] Potassium Chloride (Potassium Chloride 10 Meq Tablet) 10 meq PO QAMCC [facility] Last Admin: 11/11/20 08:31 Dose: 10 meq Documented by: Pregabalin (Pregabalin 25 Mg Capsule) 25 mg PO TID [facility] Last Admin: 11/11/20 08:32 Dose: 25 mg Documented by: Rivaroxaban (Rivaroxaban 20 Mg Tablet) 20 mg PO DAILY@1500 [facility] Fluticasone/Salmeterol (Fluticasone/Salmeterol 250/50 Inhaler #14) 1 puff INH BID [facility] Senna (Sennosides 1 Tablet) 2 tab PO [facility] Last Admin: 11/10/20 23:17 Dose: Not Given Documented by: Sodium Chloride (0.9 % Sodium Chloride 10 Ml Syringe) 10 ml IV Q8 [facility] Last Admin: 11/11/20 05:02 Dose: 10 ml Documented by: Torsemide (Torsemide 10 Mg Tablet) 20 mg PO BID@0700,1500 [facility] Trazodone HCl (Trazodone Hcl 50 Mg Tablet) 25 mg PO HSP PRN PRN Reason: Insomnia Last Admin: 11/10/20 23:15 Dose: 25 mg Documented by: Trazodone HCl (Trazodone Hcl 100 Mg Tablet) 200 mg PO QHS [facility] Vitamin D (Vitamin D3 1,000 Unit Tablet) 1,000 unit PO DAILY [facility] Last Admin: 11/11/20 10:48 Dose: 1,000 unit Documented by: A/P Assessment and plan (1) Type 2 diabetes mellitus with hyperglycemia: Status: Chronic (2) Morbid obesity with alveolar hypoventilation: Status: Chronic (3) Acute and chronic respiratory failure with hypoxia: Status: Chronic (4) COPD (chronic obstructive pulmonary disease): Status: Chronic (5) GERD without esophagitis: Status: Chronic (6) Essential hypertension: Status: Chronic (7) Mixed hyperlipidemia: Status: Chronic (8) Acute exacerbation of CHF (congestive heart failure): Status: Acute (9) On home oxygen therapy: Status: Acute (10) Delirium: Status: Acute (11) Diarrhea: Status: Acute (12) Chest pain: Status: Acute Narrative A/P Narrative: Assessment and Plans: 1. CHF exacerbation: Stays in inpatient med surg with telemetry Supplemental oxygen titrate to achieve spo2>=88% (h/o COPD, on home oxygen therapy=2L/min) Intake and output Daily weigh 2L/day fluid restriction 2D echocardiogram look for LVEF and signs of diastolic dysfunction No beta tammy during exacerbation phase, can restart at hospital discharge LIV-I such as Lisinopril Lasix 40mg IV-->PO BID d/c Torsemide from home regimen Depending on the results of the echocardiogram, consider adding Aldactone 2. COPD, stable: No clinical evidence of exacerbation DuoNEB NEB q4hr PRN wheezing 3. T2DM: HgA1c Hold any oral hypoglycemics Low dose SSI AC HS Accu Chek AC HS Hypoglycemia protocol Diabetic diet 4. Essential HTN: No beta tammy during exacerbation phase, can restart at hospital discharge LIV-I such as Lisinopril Lasix 40mg IV BID Depending on the results of the echocardiogram, consider adding Aldactone 5. Mixed dyslipidemia: Continue statin therapy 6. Delirium: Likely secondary to CHF exacerbation and associated hypoxia/hypoxemia. CT head w/o no acute intracranial findings 7. GERD: Continue oral PPI 8. Morbid obesity: Continue to monitor 9. Acute diarrhea: C diff toxin PCR negative Imodium PRN loose stool 10. Left sided chest pain: ECG no signs of acute ischemia Serial Troponin-i NitroSTAT SL PRN chest pain GI ppx: Continue oral PPI DVT ppx: Lovenox Code status: Full Prognosis: guarded Disposition: inpatient med surg telemetry Time Spent With Patient Time: Total time spent is greater than 50% in coordination of care (as documented) at patient's floor/unit and/or counseling patient: QUALITY VTE Deep Vein Thrombosis/Pulmonary Embolism Present on Admission: No
[2020-11-11] MEDS: ALBUTEROL SULFATE 200 PUFF INHALER INH SCH ×4 (11:14→20:54)
[2020-11-11] MEDS: FLUTICASONE/SALMETEROL 250/50 INHALER #14 INH SCH ×2 (11:14→20:53)
[2020-11-11] MEDS ORDERED: TORSEMIDE 10 MG TABLET PO SCH (15:00)
[2020-11-11] MEDS ORDERED: RIVAROXABAN 20 MG TABLET PO SCH (15:00)
[2020-11-11] MEDS: FUROSEMIDE 40 MG TABLET PO SCH (16:36)
--- NOTE | 2020-11-11 16:44 | EKG ---
[facility] Test Date: 2020-11-10 Pat Name: Alissa Dowling Department: ED Room: Gender: Female Statistical Methods Teacher: alexx : 1955 Requested By: Ean Wilkes Order Number: [id number] Reading MD: Celso Orellana Measurements Intervals [place] Rate: 67 P: 71 TN: 163 QRS: 81 QRSD: 103 T: 57 QT: 450 QTc: 475 Interpretive Statements Sinus rhythm Borderline right axis deviation Electronically Signed On 11-11-2020 16:44:40 PDT by Celso Orellana /store/M0/[id number]
[2020-11-11] MEDS: SENNOSIDES 1 TABLET PO SCH (20:54)
[2020-11-11] MEDS ORDERED: MELATONIN 3 MG TABLET PO SCH (21:00)
[2020-11-11] MEDS ORDERED: PARoxetine 20 MG TABLET PO SCH (21:00)
[2020-11-11] MEDS ORDERED: traZODone HCL 100 MG TABLET PO SCH (21:00)
[2020-11-11] MEDS: PANTOPRAZOLE 40 MG TABLET PO SCH (21:23)
[2020-11-11] MEDS: ATORVASTATIN 40 MG TABLET PO SCH (21:23)
[2020-11-11] MEDS ORDERED: FUROSEMIDE 40 MG/4 ML VIAL IV ONE ×2 (22:52→22:58)
[2020-11-12 07:51] LABS: Blood Urea Nitrogen 16 mg/dL (8-23); Calcium 8.7 mg/dL (8.6-10.4); Carbon Dioxide 45 mmol/L (22-30); Chloride 91 mmol/L (96-108); Glomerular Filtration Rate 59; Glucose 96 mg/dL (70-105)
[2020-11-12] MEDS: INSULIN LISPRO 1 UNIT/0.01 ML UNIT SQ SCH ×2 (08:08→12:37)
[2020-11-12] MEDS: PARoxetine 20 MG TABLET PO SCH (08:17)
[2020-11-12] MEDS: PREGABALIN 25 MG CAPSULE PO SCH (08:17)
[2020-11-12] MEDS: MAGNESIUM OXIDE 400 MG TABLET PO SCH (08:17)
[2020-11-12] MEDS: MULTIVIT,THER IRON,CA,FA & MIN 1 TABLET PO SCH (08:18)
[2020-11-12] MEDS: VITAMIN D3 1,000 UNIT TABLET PO SCH (08:18)
[2020-11-12] MEDS: ASPIRIN 81 MG TAB.CHEW CHEWED SCH (08:18)
[2020-11-12] MEDS: POTASSIUM CHLORIDE 10 MEQ TABLET PO SCH (08:18)
[2020-11-12] MEDS: ALBUTEROL SULFATE 200 PUFF INHALER INH SCH ×2 (08:18→12:39)
[2020-11-12] MEDS: LISINOPRIL 2.5 MG TABLET PO SCH (08:18)
[2020-11-12] MEDS: 0.9 % SODIUM CHLORIDE 10 ML SYRINGE IV SCH ×2 (08:19→12:39)
[2020-11-12] MEDS: DOCUSATE SODIUM 100 MG CAPSULE PO SCH (08:19)
[2020-11-12] MEDS: FLUTICASONE/SALMETEROL 250/50 INHALER #14 INH SCH (08:19)
[2020-11-12] MEDS: FUROSEMIDE 40 MG TABLET PO SCH (08:19)
[2020-11-12] MEDS: LIDOCAINE PATCH TOPICAL SCH (08:56)
[2020-11-12] MEDS ORDERED: ERGOCALCIFEROL (VITAMIN D2) 50,000 UNIT CAPSULE PO SCH (09:00)
--- NOTE | 2020-11-12 12:24 | Discharge Summary ---
Discharge Provider Provider Patient information: Note initiated : 11/12/20 at 12:20 pm Service Date, if different from initiated Date: [] Patient: Alissa Dowling 65 y/o F admitted on 11/10/20 for SOB/chest pain. Chief Complaint: [CHF exacerbation] Date of admission: 11/10/20 20:26 Discharge date: 11/12/20 Consults: 11/10/20 Consult to Physician [CONS] Stat Comment: Consulting Provider: Abilio Mcdonald Reason For Exam: Physician to Consult Discharge Meds Discharge Medications Home Medications Fleet Enema 118 ml WV ONCE PRN 11/11/20 [History Confirmed 11/11/20 Last Taken Unknown] acetaminophen 650 mg PO Q6H PRN 11/11/20 [History Confirmed 11/11/20 Last Taken Unknown] albuterol sulfate [Proventil HFA] 1 puff INHALATION QID 11/11/20 [History Confirmed 11/11/20 Last Taken 11/10/20 12:00] atorvastatin 40 mg PO QHS 11/11/20 [History Confirmed 11/11/20 Last Taken 11/09/20 20:00] bisacodyl [Dulcolax (bisacodyl)] 10 mg WV QDAY PRN 11/11/20 [History Confirmed 11/11/20 Last Taken Unknown] calcium carbonate 500 mg PO TID PRN 11/11/20 [History Confirmed 11/11/20 Last Taken Unknown] calcium citrate 500 mg PO BID 11/11/20 [History Confirmed 11/11/20 Last Taken 11/10/20 07:00] cholecalciferol (vitamin D3) 25 mcg PO QDAY 11/11/20 [History Confirmed 11/11/20 Last Taken 11/10/20 07:00] docusate sodium 100 mg PO BID 11/11/20 [History Confirmed 11/11/20 Last Taken 11/10/20 07:00] ergocalciferol (vitamin D2) 1,250 mcg PO WE 11/11/20 [History Confirmed 11/11/20 Last Taken 11/05/20 07:00] fluticasone propion-salmeterol 1 inh INHALATION BID 11/11/20 [History Confirmed 11/11/20 Last Taken 11/10/20 07:00] hydroxyzine HCl 50 mg PO DAILY PRN 11/11/20 [History Confirmed 11/11/20 Last Taken Unknown] lidocaine [Lidocaine Pain Relief] 1 patch TOPICAL QDAY PRN 11/11/20 [History Confirmed 11/11/20 Last Taken Unknown] loperamide 2 mg PO Q4H PRN 11/11/20 [History Confirmed 11/11/20 Last Taken Unknown] magnesium 200 mg PO QDAY 11/11/20 [History Confirmed 11/11/20 Last Taken 11/10/20 07:00] magnesium hydroxide [Milk of Magnesia] 400 mg PO QDAY PRN 11/11/20 [History Conf irmed 11/11/20 Last Taken Unknown] magnesium oxide 400 mg PO QDAY 11/11/20 [History Confirmed 11/11/20 Last Taken 11/10/20 07:00] melatonin 10 mg PO HS 11/11/20 [History Confirmed 11/11/20 Last Taken 11/09/20 20:00] metformin 500 mg PO QDAY 11/11/20 [History Confirmed 11/11/20 Last Taken 11/10/20 07:00] metoprolol tartrate 50 mg PO BID 11/11/20 [History Confirmed 11/11/20 Last Taken 11/10/20 07:00] multivitamin [Multiple Vitamins] 1 tab PO QAM 11/11/20 [History Confirmed 11/11/20 Last Taken 11/10/20 07:00] naproxen sodium [Aleve] 220 mg PO Q12H PRN 11/11/20 [History Confirmed 11/11/20 Last Taken Unknown] oxycodone 10 mg PO Q4H PRN 11/11/20 [History Confirmed 11/11/20 Last Taken 11/06/20 21:00] paroxetine HCl 10 mg PO QDAY 11/11/20 [History Confirmed 11/11/20 Last Taken 11/10/20 07:00] paroxetine HCl 20 mg PO HS 11/11/20 [History Confirmed 11/11/20 Last Taken 11/09/20 20:00] polyethylene glycol 3350 17 g PO DAILY 11/11/20 [History Confirmed 11/11/20 Last Taken 11/10/20 07:00] potassium chloride 10 meq PO QDAY 11/11/20 [History Confirmed 11/11/20 Last Taken 11/10/20 07:00] pregabalin [Lyrica] 25 mg PO TID 11/11/20 [History Confirmed 11/11/20 Last Taken 11/10/20 07:00] rivaroxaban 20 mg PO 1500 11/11/20 [History Confirmed 11/11/20 Last Taken 11/09/20 15:00] trazodone 200 mg PO QHS 11/11/20 [History Confirmed 11/11/20 Last Taken 11/09/20 20:00] Lisinopril [Zestril] 2.5 mg PO DAILY 30 Days 11/12/20 [Rx Last Taken Unknown] furosemide 40 mg PO BIDD 30 Days #60 tab 11/12/20 [Rx Last Taken Unknown] nitroglycerin 0.4 mg SL Q5M PRN #10 tab 11/12/20 [Rx Last Taken Unknown] COURSE Hospital Course Hospital course: Patient was admitted on November 10, 2020 for acute respiratory failure secondary to CHF exacerbations. Echocardiogram was performed and it shows slightly reduced left ventricular function with LVEF 55 to 60%. Supplemental oxygen therapy, IV Lasix, small dose of beta-tammy, LIV inhibitor lisinopril were all given. Torsemide will being held. Patient has a gradual course of recovery during her hospitalizations and by third day hospitalizations, her oxygen requirements went back down to 3 L/min; her home oxygen requirement were at 2 L/min. Patient is otherwise reached clinical stability and the decision was thus made to discharge her back to the residential on day 3 hospitalizations. Any prescription sent to her. All questions were answered prior to patient being physically discharged. Discharge diagnosis: CHF exacerbation Time Spent with Patient Time attestation: Total time spent providing and/or coordinating discharge services: Patient was admitted on November 10, 2020 for acute respiratory failure secondary to CHF exacerbations. Echocardiogram was performed and it shows slightly reduced left ventricular function with LVEF 55 to 60%. Supplemental oxygen therapy, IV Lasix, small dose of beta-tammy, LIV inhibitor lisinopril were all given. Torsemide will being held. Patient has a gradual course of recovery during her hospitalizations and by third day hospitalizations, her oxygen requirements went back down to 3 L/min; her home oxygen requirement were at 2 L/min. Patient is otherwise reached clinical stability and the decision was thus made to discharge her back to the residential on day 3 hospitalizations. Any prescription sent to her. All questions were answered prior to patient being physically discharged. EXAM Constitutional Vitals: Temp Pulse Resp BP Pulse Ox 36.6 C 80 22 115/69 93 11/12/20 12:00 11/12/20 12:00 11/12/20 12:00 11/12/20 12:00 11/12/20 12:00 General appearance: cooperative and no acute distress Head Head exam: Present atraumatic and normocephalic Eye Eye exam: Present EOMI and PERRL ENT ENT exam: Present mucous membranes moist, normal exam and normal external ear exam Additional comments: Nasal cannula in place Neck Neck exam: Present normal inspection; Absent lymphadenopathy, tenderness and thyromegaly Respiratory Respiratory exam: Present rhonchi; Absent accessory muscle use, respiratory distress and wheezes Cardiovascular Cardiovascular exam: Present normal rate and rhythm; Absent JVD GI/Abdominal GI/Abdominal exam: Present normal bowel sounds and soft; Absent organomegaly and tenderness Extremities Exam Extremities exam: Present full ROM, normal capillary refill, normal inspection and pedal edema; Absent tenderness Neurological Exam Neurological exam: Present alert, CN II-XII intact and oriented X3; Absent motor sensory deficit Psychiatric Psychiatric exam: Present normal affect and normal mood; Absent anxious and depressed Skin Skin exam: Present dry and intact Discharge Data Data Completed and Pending Labs on day of discharge: Labs from last 24 hours 11/12/20 11/11/20 05:59 21:03 Sodium 144 Potassium 3.3 Chloride 91 L Carbon Dioxide 45 H* Anion Gap 8.0 BUN 16 Creatinine 1.0 GFR Calculation 59 Glucose 96 Calcium 8.7 Magnesium 1.6 Troponin T < 0.01 Discharge Plan Patient/Caregiver Discharge Instructions Activity: increase activity as tolerated Diet: Consistent Carbohydrate Prescriptions: New furosemide 40 mg Tablet 40 mg PO BIDD 30 Days Qty: 60 RF: 0 nitroglycerin 0.4 mg Tablet, Sublingual 0.4 mg SL Q5M PRN (Reason: Chest Pain) Qty: 10 RF: 0 Lisinopril [Zestril] 2.5 mg PO DAILY 30 Days RF: 0 Continued multivitamin [Multiple Vitamins] Tablet 1 tab PO QAM RF: 0 atorvastatin 40 mg Tablet 40 mg PO QHS RF: 0 fluticasone propion-salmeterol 250-50 mcg/dose Blister With Device 1 inh INHALATION BID RF: 0 acetaminophen 325 mg Tablet 650 mg PO Q6H PRN (Reason: Fever Or Pain) RF: 0 paroxetine HCl 10 mg Tablet 10 mg PO QDAY RF: 0 lidocaine [Lidocaine Pain Relief] 4 % Adhesive Patch,Medicated 1 patch TOPICAL QDAY PRN (Reason: Pain) RF: 0 loperamide 2 mg Tablet 2 mg PO Q4H PRN (Reason: Loose Stool) RF: 0 potassium chloride 10 mEq Tablet Extended Release 10 meq PO QDAY RF: 0 hydroxyzine HCl 50 mg Tablet 50 mg PO DAILY PRN (Reason: Anxiety) RF: 0 magnesium hydroxide [Milk of Magnesia] 400 mg/5 mL Suspension 400 mg PO QDAY PRN (Reason: Constipation) RF: 0 trazodone 100 mg Tablet 200 mg PO QHS RF: 0 bisacodyl [Dulcolax (bisacodyl)] 10 mg Suppository 10 mg [place] QDAY PRN (Reason: Constipation) RF: 0 paroxetine HCl 20 mg Tablet 20 mg PO HS RF: 0 naproxen sodium [Aleve] 220 mg Tablet 220 mg PO Q12H PRN (Reason: Pain) RF: 0 metoprolol tartrate 50 mg Tablet 50 mg PO BID RF: 0 Fleet Enema 19-7 gram/118 mL Enema 118 ml W[place] ONCE PRN (Reason: Constipation) RF: 0 ergocalciferol (vitamin D2) 1,250 mcg (50,000 unit) Capsule 1,250 mcg PO WE RF: 0 polyethylene glycol 3350 17 gram/dose Powder 17 g PO DAILY RF: 0 albuterol sulfate [Proventil HFA] 90 mcg/actuation Hfa Aerosol Inhaler 1 puff INHALATION QID RF: 0 metformin 500 mg Tablet Extended Release 24 Hr 500 mg PO QDAY RF: 0 docusate sodium 100 mg Tablet 100 mg PO BID RF: 0 oxycodone 5 mg Tablet 10 mg PO Q4H PRN (Reason: Pain) RF: 0 cholecalciferol (vitamin D3) 25 mcg (1,000 unit) Capsule 25 mcg PO QDAY RF: 0 magnesium 200 mg Tablet 200 mg PO QDAY RF: 0 calcium carbonate 500 mg Wafer 500 mg PO TID PRN (Reason: Heartburn) RF: 0 pregabalin [Lyrica] 25 mg Capsule 25 mg PO TID RF: 0 calcium citrate 250 mg calcium Tablet 500 mg PO BID RF: 0 rivaroxaban 20 mg Tablet 20 mg PO 1500 RF: 0 melatonin 10 mg Tablet 10 mg PO HS RF: 0 Discontinued torsemide [Demadex] 20 mg Tablet 20 mg PO 0700,1500 RF: 0 No Action magnesium oxide 400 mg magnesium Tablet 400 mg PO QDAY RF: 0 Follow Up Plan Patient Disposition: Xfer SNF Rehab Potential: Good I certify that the patient requires SNF services: Yes Overall status at discharge: patient is progressing back to baseline Discharge Orders: Discharge Order (Routine); Ordered 11/12/20 Ordered By: Abilio RAMOS VTE Deep Vein Thrombosis/Pulmonary Embolism Present on Admission: No
== END 2020-11-12 13:30 | DRG 291 ==
LOC: MERGE 13:36 → ED 13:36 → MEDSUR 20:26
PROVIDERS: ADMIT Internal Medicine; ATTEND Internal Medicine